=== PATIENT | male | born 1955 | race Caucasian/White ===

== ENCOUNTER 2023-01-15 13:03 | Emergency (ER) | payer BC, OTHER ==
[~2023-01-15] VITALS: Ht 180.3 cm; Wt 81.8 kg
[2023-01-15] MEDS ORDERED: ONDANSETRON HCL 4 MG/2 ML VIAL IV ONE (13:15)
[2023-01-15] MEDS ORDERED: MORPHINE SULFATE 4 MG/ML SYR/VIAL IV ONE (13:15)
[2023-01-15] MEDS ORDERED: IOHEXOL 300 MG/ML 100ML BOTTLE IJ ONE (13:34)
[2023-01-15] MEDS ORDERED: CYCLOBENZAPRINE HCL 10 MG TAB PO ONE (15:30)
[2023-01-15 17:51] LABS: Urine Bacteria NONE SEEN /hpf (None Seen); Urine Blood Negative /uL (Negative); Urine Mucus FEW (None Seen); Urine WBC <1 /hpf (0 - 3)
[2023-01-15 17:54] LABS: Urine Specific Gravity > 1.050 (1.001-1.035)
[2023-01-15 18:00] VITALS: BP 119/72
[2023-01-15] MEDS ORDERED: HYDR-4902 PO (18:22)
[2023-01-15] MEDS ORDERED: ACETAMINOPHEN 500 MG TAB PO ONE ×2 (18:27→18:30)
== END 2023-01-15 18:32 | disposition home or self-care (01) ==
LOC: EDBD 13:03 → ER 13:03
DX: S20.20XA Contusion of thorax, unspecified, initial encounter (principal); Z79.1 Long term (current) use of non-steroidal anti-inflammatories (NSAID); Z87.442 Personal history of urinary calculi; Z98.890 Other specified postprocedural states; V49.49XA Driver injured in collision with other motor vehicles in traffic accident, initial encounter; Y93.89 Activity, other specified; Y92.411 Interstate highway as the place of occurrence of the external cause; Y99.8 Other external cause status
CPT/HCPCS: 71260; 74177; 81001; 99285; Q9967